=== PATIENT | male | born 1985 | race Hispanic/Latino ===

== ENCOUNTER 2018-03-20 10:43 | Emergency (ER) | payer OTHER, SELFPAY ==
[2018-03-20] MEDS ORDERED: Dexamethasone 4 mg/ml Vial ONE (11:35)
== END 2018-03-20 10:55 | disposition home or self-care (01) ==
LOC: ERS 10:43
DX: L25.5 Unspecified contact dermatitis due to plants, except food (principal)
CPT/HCPCS: 96372; J1100